=== PATIENT | male | born 1975 | race Caucasian/White ===

== ENCOUNTER 2021-03-24 10:31 | Emergency (ER) | payer MEDICARE ==
[~2021-03-24] VITALS: Ht 162.6 cm; Wt 88.6 kg
[~2021-03-24 10:31] MED LIST: IBUP-1027 PO
[2021-03-24 10:50] VITALS: BP 128/74
--- NOTE | 2021-03-24 11:31 | ED.ADGEN ---
Past Medical History Past Medical History: Asthma, Other Additional Past Medical Histor: BLOOD CLOTS Past Surgical History: Other Additional Past Surgical Histo: RIGHT LOWER LEG Fx Smoking Status: Current Every Day Smoker Alcohol Use: None Drug Use: Marijuana General Adult EDM: Chief Complaint: LOWER EXT PAIN HPI: HPI: Patient is a 45 year old male who presents emergency department with complaints of a recent sensation of pressure in his right leg with a history of blood clots. Patient states that he was taking Eliquis but in December he stopped taking it because he was put in assisted and they took him off of it. Patient states he had previous blood clot in his right leg after having surgery on his right lower leg after fracturing his leg. Patient states that last night he began to have pain from his medial right ankle all the way up to his right groin. He denies any injury, numbness, tingling, or weakness. Patient denies any fever, cough, shortness of breath, chest pain, abdominal pain, nausea, vomiting, or diarrhea. He currently rates the pain a 6 out of 10 on the pain scale, he describes it as a sharp ache. He denies any alleviating factors, the pain is worse with palpation and weightbearing. Review of Systems: Review of Systems: Complete ROS is negative unless otherwise noted in HPI. Allergies: Allergies: Allergies Coded Allergies Type Severity Reaction Last Updated Verified acetaminophen Allergy Intermediate hives 03/24/21 Yes tramadol Allergy Unknown hives 06/20/16 Yes Uncoded Allergies Type Severity Reaction Last Updated Verified darvocet Allergy Intermediate hives 03/24/21 Physical Exam: PE: See Above Constitutional: Well developed, well nourished, no acute distress, non-toxic appearance. [] HENT: Normocephalic, atraumatic, bilateral external ears normal, nose normal. [] Eyes: PERRLA, EOMI, conjunctiva normal, no discharge. [] Neck: Normal range of motion, no stridor. [] Cardiovascular:Heart rate regular rhythm Lungs & Thorax: Respirations even and unlabored, no retractions, no respiratory distress Skin: Warm, dry, no erythema, no rash. [] Extremities: RLE: Negative Homans' sign, right calf tenderness, right medial thigh tenderness, cap refill less than 2 seconds, normal sensation, no cyanosis, ROM intact, no edema. [] Neurologic: Alert and oriented X 3, normal motor, normal sensory, no focal deficits noted. [] Psychologic: Affect normal, judgement normal, mood normal. [] Current Patient Data: Vital Signs: Vital Signs Date Time Temp Pulse Resp B/P (MAP) Pulse Ox O2 Delivery O2 Flow Rate FiO2 03/24/21 10:50 98.2 87 16 128/74 (92) 97 Room Air 98.2 EKG: EKG: [] Heart Score: C/O Chest Pain: No Risk Scores: Score 0 - 3: 2.5% MACE over next 6 weeks - Discharge Home Score 4 - 6: 20.3% MACE over next 6 weeks - Admit for Clinical Observation Score 7 - 10: 72.7% MACE over next 6 weeks - Early Invasive Strategies Radiology/Procedures: Radiology/Procedures: PROCEDURE: VENOUS LOWER EXTREMITY RIGHT EXAM: Right lower extremity venous Doppler sonogram. HISTORY: Pain and swelling. Prior DVT. TECHNIQUE: Mason scale and color Doppler sonographic evaluation of the right lower extremity veins with spectral waveform analysis was performed. FINDINGS: There is normal color flow, normal compressibility and there are normal spectral waveforms in the common femoral, superficial femoral, popliteal, posterior tibial and greater saphenous veins. IMPRESSION: No Doppler evidence of lower extremity deep venous thrombosis. Electronically signed by: Daisy Howard MD (03/24/2021 11:44 AM) [id number] [] Course & Med Decision Making: Course & Med Decision Making Pertinent Labs and Imaging studies reviewed. (See chart for details) [] Dragon Disclaimer: Dragon Disclaimer: This electronic medical record was generated, in whole or in part, using a voice recognition dictation system. Departure Departure Impression: Primary Impression: Right leg pain Disposition: 01 HOME / SELF CARE / HOMELESS Condition: STABLE Referrals: NISSA CHRISTINE MD (PCP) Patient Instructions: Muscle Strain, [id number] Additional Instructions: Recommend that you take Tylenol or ibuprofen as needed for pain. Follow-up with your primary care doctor if symptoms persist. Return to the ER if symptoms worsen or fever develops. RUDY MARIANO DIRECTOR PRIVATE March 24, 2021 11:31
--- NOTE | 2021-03-24 11:47 | RAD ---
EXAM: Right lower extremity venous Doppler sonogram. HISTORY: Pain and swelling. Prior DVT. TECHNIQUE: Mason scale and color Doppler sonographic evaluation of the right lower extremity veins wit h spectral waveform analysis was performed. FINDINGS: There is normal color flow, normal compressibility and there are normal spectral waveforms in the common femoral, superficial femoral, popliteal, posterior tibial and greater saphenous veins. IMPRESSION: No Doppler evidence of lower extremity deep venous thrombosis. Electronically signed by: Daisy Howard MD (03/24/2021 11:44 AM) [id number]
== END 2021-03-24 12:13 | disposition home or self-care (01) ==
LOC: ER 10:31
DX: M79.604 Pain in right leg (principal); J45.909 Unspecified asthma, uncomplicated; F17.200 Nicotine dependence, unspecified, uncomplicated; Z88.6 Allergy status to analgesic agent
CPT/HCPCS: 93971; 99284

== ENCOUNTER 2021-06-12 22:55 | Emergency (ER) | payer SELFPAY ==
[2021-06-12 15:00] VITALS: BP 119/72
[~2021-06-12 22:55] MED LIST changes: +ASPI-630 PO; +ATOR10TA60 PO; +PRED20TA PO
== END 2021-06-12 23:28 | disposition left against medical advice (07) ==
LOC: ER 22:55
DX: R53.1 Weakness (principal); Z53.21 Procedure and treatment not carried out due to patient leaving prior to being seen by health care provider

== ENCOUNTER → 2021-08-28 | Outpatient (CLI) | payer MEDICARE, OTHER ==
--- NOTE | 2021-08-28 09:39 | RAD ---
EXAM: Right tibia and fibula, 2 views. HISTORY: Pain. COMPARISON: None. FINDINGS: 2 views of the tibia and fibula are obtained. There is internal fixation of a healed tibial diaphyseal fracture within intramedullary halima. There is also a healed proximal fibular diaphyseal fr acture. No acute fracture is seen. There is no evidence of instrumentation loosening. There is no stephen picious lytic or sclerotic osseous lesion. The ankle mortise is intact. There is enthesopathy along t he superior patella. IMPRESSION: No acute osseous finding. Healed tibial fracture status post internal fixation. Healed fi bular fracture. Electronically signed by: Daisy Howard MD (08/28/2021 9:36 AM) [id number]
== END ==
LOC: LAB 08:41
PROVIDERS: ATTEND Anesthesiology Pain Medicine
DX: Z02.71 Encounter for disability determination (principal); M79.661 Pain in right lower leg
CPT/HCPCS: 73590